=== PATIENT | male | born 1970 | race Hispanic/Latino ===

== ENCOUNTER 2017-12-05 16:06 | Emergency (ER) | payer OTHER ==
[~2017-12-05] VITALS: Ht 177.8 cm; Wt 100.0 kg
[~2017-12-05 16:06] MED LIST: ALBUTEROL SUL0.083 % IN; BACTRIM DS1 TAB PO; CEPHALEXIN500 MG PO; FLEXERIL PO; MEDDOSEPAK PO; MOTRIN800 MG/TAB PO; PROAIR HFA IN; ROBITUSSIN AC10 ML PO; TAM75CAP PO; TENIVAC1 ML IM; TOBRAMYCIN0.3 % OS
[2017-12-05 17:06] LABS: HEMATOCRIT 44.2 % (39.0-50.0); HEMOGLOBIN 14.7 g/dl (14.0-18.0); IMMATURE GRANULOCYTES 0.5 % (0.0-1.0); MEAN CELL VOLUME 87.7 fL CALC (80.0-100.0); MEAN CORPUSCULAR HGB 29.2 pG CALC (26.0-32.0); MEAN CORPUSCULAR HGB CONC 33.3 g/L CALC (32.0-36.0); NEUT# 10.96 thou/uL (1.82-7.42); RED BLOOD COUNT 5.04 mill/uL (4.70-6.10); RED CELL DISTRI WIDTH 13.7 % (11.5-15.5)
[2017-12-05 17:21] LABS: ALBUMIN 4.3 g/dL (3.2-5.0); ALKALINE PHOSPHATASE 61 u/l (38-126); AMYLASE < 30 u/l (30-110); ANION GAP 15 (6-22 (CALC)); BILIRUBIN, TOTAL 0.6 mg/dL (0.0-1.4); BUN 21 mg/dL (9-20); BUN/CREATININE RATIO 26 (12-20 (CALC)); CARBON DIOXIDE 28 mmol/l (22-30); CHLORIDE 101 mmol/l (95-108); CREATININE 0.8 mg/dL (0.7-1.3); GFR > 60 ML/MIN (>=60 (CALC)); GFR FOR AFR.AMER. > 60 ML/MIN (>=60 (CALC)); LIPASE 48 u/l (23-300); POTASSIUM 4.2 mmol/l (3.5-5.1); SGOT/AST 23 u/l (17-59); SGPT/ALT 53 u/l (21-72); SODIUM 139 mmol/l (137-146); TOTAL PROTEIN 7.2 g/dL (6.3-8.2)
[2017-12-05 18:15] LABS: URINE BILIRUBIN - DIPSTICK NEGATIVE (NEGATIVE); URINE BLOOD DIPSTICK TRACE-INTACT (NEGATIVE); URINE COLOR YELLOW; URINE GLUCOSE - DIPSTICK NEGATIVE (NEGATIVE); URINE KETONE NEGATIVE (NEGATIVE); URINE LEUK ESTERASE NEGATIVE (NEGATIVE); URINE NITRITE - DIPSTICK NEGATIVE (Negative); URINE PH 5.5 (4.5-8.0); URINE PROTEIN - DIPSTICK NEGATIVE (NEG-TRACE); URINE SPECIFIC GRAVITY >=1.030; URINE UROBILINOGEN - DIPSTICK 0.2 E.U./dL (0.2)
[2017-12-05 18:16] LABS: URINE CLARITY CLEAR
[2017-12-05] MEDS ORDERED: LOMOTIL2.5 MG PO (19:02)
[2017-12-05] MEDS ORDERED: BACTRIM DS1 TAB PO (19:02)
[2017-12-05] MEDS ORDERED: ZOFRAN ODT4 MG PO (19:02)
[2017-12-05 19:07] VITALS: BP 132/68
== END 2017-12-05 19:18 | disposition home or self-care (01) | DRG 392 ==
LOC: ED 16:06
PROVIDERS: Emergency Medicine
DX: K52.9 Noninfective gastroenteritis and colitis, unspecified (principal); R11.0 Nausea; R50.9 Fever, unspecified; R53.1 Weakness; R51 Headache
CPT/HCPCS: Q9967

== ENCOUNTER 2019-11-30 | Emergency (ER) | payer OTHER ==
[~2019-11-30] MED LIST changes: +LOMOTIL2.5 MG PO; +ZOFRAN ODT4 MG PO
[2019-11-30] MEDS ORDERED: BREO ELLIPTA1 INH IN (19:28)
== END 2019-11-30 20:40 | disposition home or self-care (01) | DRG 563 ==
DX: S93.402A Sprain of unspecified ligament of left ankle, initial encounter (principal); X50.0XXA Overexertion from strenuous movement or load, initial encounter; Y92.007 Garden or yard of unspecified non-institutional (private) residence as the place of occurrence of the external cause

== ENCOUNTER 2020-05-06 11:32 | Emergency (ER) | payer OTHER ==
[~2020-05-06] VITALS: Ht 177.8 cm; Wt 105.0 kg
[~2020-05-06 11:32] MED LIST changes: +BREO ELLIPTA1 INH IN
[2020-05-06] MEDS ORDERED: AMOXICILLIN500 MG PO (11:56)
[2020-05-06 12:00] VITALS: BP 150/79
== END 2020-05-06 12:00 | disposition home or self-care (01) | DRG 605 ==
LOC: ED 11:32
DX: S81.831A Puncture wound without foreign body, right lower leg, initial encounter (principal); L08.9 Local infection of the skin and subcutaneous tissue, unspecified; J45.909 Unspecified asthma, uncomplicated; W46.1XXA Contact with contaminated hypodermic needle, initial encounter; Y93.K9 Activity, other involving animal care; Y99.0 Civilian activity done for income or pay

== ENCOUNTER 2020-06-11 09:59 | Day surgery (SDC) | payer OTHER ==
[~2020-06-11] VITALS: Ht 177.8 cm; Wt 99.8 kg
[~2020-06-11 09:59] MED LIST changes: +AMOXICILLIN500 MG PO
[2020-06-11 13:53] VITALS: BP 139/81
--- NOTE | 2020-06-16 09:33 | NUR ---
PER PHYSICIAN, NOTIFIED PATIENT OF COLONOSCOPY RESULTS, REPEAT X 10 YEARS, OR SOONER IF NEEDED. FINDINGS INTERNAL HEMORRHOIDS, RECOMMENDATIONS OVER THE COUNTER SUPPOSITORIES AND HYDROCORTISON OINTMENT FOR SYMPTOMATIC RELIEF. PATIENT AGREED TO INFORMATION PROVIDED. NO CONCERNS VOICED. RESULTS FORWARDED TO PRIMARY CARE FOR CONTINUITY OF CARE.
== END 2020-06-11 14:07 | disposition home or self-care (01) | DRG 951 ==
LOC: ENDO 09:59
PROVIDERS: ATTEND Surgery
PROC: 0DJD8ZZ Inspection of Lower Intestinal Tract, Via Natural or Artificial Opening Endoscopic (ICD-10-PCS; principal; 2020-06-11)
DX: Z12.11 Encounter for screening for malignant neoplasm of colon (principal); K64.8 Other hemorrhoids; Z20.828 Contact with and (suspected) exposure to other viral communicable diseases

== ENCOUNTER 2021-02-05 10:42 | Inpatient (IN) | payer OTHER ==
[~2021-02-05] VITALS: Ht 177.8 cm; Wt 97.0 kg
--- NOTE | 2021-02-05 10:55 | NUR ---
PATIENT AMBULATED TO ROOM WITH STEADY GAIT AND PHYSICIAN NOTIFIED OF PATIENT STATUS
--- NOTE | 2021-02-05 11:29 | NUR ---
Rt BEDSIDE FOR ABG
[2021-02-05 12:58] LABS: IMMATURE GRANULOCYTES 0.4 % (0.0-5.0); MEAN CORPUSCULAR HGB 21.7 pG CALC (26.0-32.0); NEUT# 4.1 thou/uL (1.82-7.42); RED BLOOD COUNT 5.25 mill/uL (4.70-6.10); RED CELL DISTRI WIDTH 18.7 % (11.5-15.5)
[2021-02-05 13:04] LABS: HEMOGLOBIN 11.4 g/dl (14.0-18.0); MEAN CELL VOLUME 72.4 fL CALC (80.0-100.0)
[2021-02-05 13:10] LABS: ALBUMIN 3.8 g/dL (3.2-5.0); ALKALINE PHOSPHATASE 81 u/l (38-126); ANION GAP 13 (6-22 (CALC)); BUN 17 mg/dL (9-20); BUN/CREATININE RATIO 23 (12-20 (CALC)); CARBON DIOXIDE 29 mmol/l (22-30); CHLORIDE 98 mmol/l (95-108); CREATININE 0.7 mg/dL (0.7-1.3); GFR > 60 ML/MIN (>=60 (CALC)); GFR FOR AFR.AMER. > 60 ML/MIN (>=60 (CALC)); LIPASE 40 u/l (23-300); SODIUM 136 mmol/l (137-146); TOTAL PROTEIN 7.4 g/dL (6.3-8.2)
[2021-02-05 13:16] LABS: BILIRUBIN, TOTAL 0.3 mg/dL (0.0-1.4); SGOT/AST 48 u/l (17-59)
[2021-02-05 13:31] LABS: ACT PARTIAL THROMBO TIME 27.1 SECONDS (20.0-32.5); PROTHROMBIN TIME 10.4 SECONDS (9.0-12.5)
--- NOTE | 2021-02-05 13:48 | NUR ---
PATIENT TO RADIOLOGY
--- NOTE | 2021-02-05 16:44 | NUR ---
REPORT CALLED TO FLOOR
--- NOTE | 2021-02-05 16:46 | NUR ---
REPORT RECEIVED FROM ED.
--- NOTE | 2021-02-05 17:04 | NUR ---
PT ARRIVED VIA STRETCHER WITH O2 VIA NC @2L IN PLACE ACCOMPANIED BY ED RN. PT A&O X4. NO DISTRESS NOTED. PT DENIES SOB, BUT SLIGHT SOB NOTED ON EXERTION. O2 VIA NC @2L IN PLACE, PT DENIES ANY OXYGEN USE AT HOME. CLEAR/DIMINSHED BREATH SOUNDS UPON AUSCULATION. ACTIVE BOWEL SOUNDS X4 QUADRANTS. BM REPORTED YESTERDAY. PER PT HE TESTED POSITIVE LAST WEEK MONDAY, REPORTS ONLY NAUSEA AND WOODRUFF, DENIES ANY CURRENT NAUSEA OR WOODRUFF AT THIS TIME. HOME CARE AIDE IN PLACE. #20 LAC HEALTHY AND PATENT. ORIENTED PT TO ROOM. ASSESSMENT COMPLETED. DISCUSSED POC AND ISOLATION PRECAUTIONS. CALL LIGHT WITHIN REACH.
[2021-02-05 17:15] VITALS: BP 130/72
[2021-02-05 19:00] VITALS: BP 133/70
--- NOTE | 2021-02-05 21:13 | NUR ---
PT MEDICATED ORDERS PROVIDE. ASSISTED PT TO THE RESTROOM AND BACK TO THE BED. PT APPEARS STEADY UPON AMBULATING, BUT HAS OXYGEN TUBING EXTENDED AND IV PUMP/ASSISTANCE PROVIDE. OXYGEN IS ON 2LNC AT THIS TIME. OXYGEN SAT 93% ON 2L. POC DISCUSSED, PT REPORTS WANTING TO GO HOME TOMORROW. PT DEMONSTRATED IS USE AND WAS ABLE TO GET TO 1500 PRIOR TO MY LEAVING THE ROOM. I ENCOURAGED HIM TO CONTINUE ITS USE 1 BREATH PER 10 MINUTES WHILE AWAKE, VERBALIZED UNDERSTANDING. I ALSO EDUCATED HIM ON LAYING PRONE IF AND WHEN HE FEELS SOB, ACKNOWLEDGED UNDERSTANDING. CALL LIGHT W/IN REACH AND PT ENCOURAGED TO CALL NEEDS ARISE.
[2021-02-06] VITALS (7 sets, daily range): BP systolic 119–139; BP diastolic 57–82
--- NOTE | 2021-02-06 02:22 | NUR ---
PT CALLED TO REPORT IVPUMP SOUNDING, BATTERY WAS LOW AND IVF REPLENISHED AT THIS TIME. PT WAS SLEEPING AND PROMPTLY RETURNED TO SLEEP, DENIED ANY OTHER NEEDS. NO S/O DISTRESS.
[2021-02-06 05:37] LABS: HEMATOCRIT 36.1 % (39.0-50.0); HEMOGLOBIN 10.9 g/dl (14.0-18.0); IMMATURE GRANULOCYTES 0.7 % (0.0-5.0); MEAN CELL VOLUME 71.8 fL CALC (80.0-100.0); MEAN CORPUSCULAR HGB 21.7 pG CALC (26.0-32.0); MEAN CORPUSCULAR HGB CONC 30.2 g/dL CAL (32.0-36.0); NEUT# 1.75 thou/uL (1.82-7.42); RED BLOOD COUNT 5.03 mill/uL (4.70-6.10); RED CELL DISTRI WIDTH 18.3 % (11.5-15.5)
[2021-02-06 05:54] LABS: ALBUMIN 3.1 g/dL (3.2-5.0); ALKALINE PHOSPHATASE 71 u/l (38-126); ANION GAP 11 (6-22 (CALC)); BILIRUBIN, TOTAL 0.4 mg/dL (0.0-1.4); BUN 17 mg/dL (9-20); BUN/CREATININE RATIO 33 (12-20 (CALC)); C-REACTIVE PROTEIN 6.6 mg/dL (0-0.9); CARBON DIOXIDE 26 mmol/l (22-30); CHLORIDE 104 mmol/l (95-108); CREATININE 0.5 mg/dL (0.7-1.3); GFR > 60 ML/MIN (>=60 (CALC)); GFR FOR AFR.AMER. > 60 ML/MIN (>=60 (CALC)); POTASSIUM 4.4 mmol/l (3.5-5.1); SGOT/AST 37 u/l (17-59); SODIUM 137 mmol/l (137-146)
--- NOTE | 2021-02-06 06:11 | NUR ---
PT SLEEPING, AWOKE TO OUR ENTERING THE ROOM. IVPUMP CLEARED, PT DENIES ANY NEEDS. ENCOURAGED HIM TO QUIN IF NEEDS ARISE.
--- NOTE | 2021-02-06 09:00 | NUR ---
PT SEEN AWAKE, ALERT, ORIENTED X 3. LUNGS CLEAR BUT DIMINISHED, USES 3 LPM NC 96%. PT AMBULATORY IN ROOM, SEEN OOB IN CHAIR.
--- NOTE | 2021-02-06 14:41 | NUR ---
PT AT REST IN THE BED, NO ACUTE DISTRESS. PT AMBULATORY IN ROOM NEEDED. PT WANTED TO GO HOME, BUT DR OLVERA THOUGHT OTHERWISE.
--- NOTE | 2021-02-06 16:25 | NUR ---
PT UPDATED ON KNOWN RESULTS, CONTINUES TO REST IN THE ROOM IN NO DISTRESS.
--- NOTE | 2021-02-06 22:01 | NUR ---
PT ASSESSMENT COMPLETED AND PT MEDICATED AT THIS TIME. OXYGEN ASSESSED AT 99% ON 2LNC. OXYGEN REMOVED AND POC DISCUSSED, OXYGEN MONITORED AT THIS TIME TO BE 96-98% ON RA. PT AGREED HE WANTED TO TRY AND MAINTAIN WITHOUT THE OXYGEN. WILL REASSESS FOR OXYGEN SAT LEVELS BEING MAINTAINED. PT DENIES ANY OTHER NEEDS AT THIS TIME. HE DID MENTION GETTING COLD THE PREVIOUS NIGHT AND HAVING A COUGHING SPELL. PROVIDED MEDICATION FOR THE COUGH AND ADDITIONAL BEDDING FOR COMFORT. INSTRUCTED PT TO CALL NEEDS ARISE, VERBALIZED UNDERSTANDING, BUT REPORTS THAT HE FEELS OKAY AND THINKS HE CAN GO HOME TOMORROW. CALL LIGHT IN HAND.
--- NOTE | 2021-02-06 22:30 | NUR ---
OXYGEN SAT LEVEL MAINTAINED ON ROOM AIR TO BE 96% HOLDING. ADVISED PT TO REPLACE OXYGEN IF HE BECOMES SOB OR FEELS LIKE HE IS STRUGGLIN TO OBTAIN OXYGEN, VERBALIZED UNDERSTANDING.
[2021-02-07 01:00] VITALS: BP 142/77
--- NOTE | 2021-02-07 01:30 | NUR ---
IVF REPLENISHED AT THIS TIME. PT PROVIDED SNACK AND JUICE AT THIS TIME. OXYGEN SAT MAINTAINING ON ROOM AIR AT 96%.
[2021-02-07 04:00] VITALS: BP 133/65
--- NOTE | 2021-02-07 04:00 | NUR ---
PT AWAKE WITH TV ON AND LIGHTS LOW. OXYGEN STABLE @96% ON RA.
[2021-02-07 05:16] LABS: HEMATOCRIT 34.6 % (39.0-50.0); HEMOGLOBIN 10.4 g/dl (14.0-18.0); MEAN CELL VOLUME 72.5 fL CALC (80.0-100.0); MEAN CORPUSCULAR HGB 21.8 pG CALC (26.0-32.0); MEAN CORPUSCULAR HGB CONC 30.1 g/dL CAL (32.0-36.0); NEUT# 6.61 thou/uL (1.82-7.42); RED BLOOD COUNT 4.77 mill/uL (4.70-6.10); RED CELL DISTRI WIDTH 18.3 % (11.5-15.5)
[2021-02-07 05:36] LABS: ALBUMIN 2.8 g/dL (3.2-5.0); ALKALINE PHOSPHATASE 65 u/l (38-126); ANION GAP 10 (6-22 (CALC)); BUN 18 mg/dL (9-20); BUN/CREATININE RATIO 32 (12-20 (CALC)); CARBON DIOXIDE 25 mmol/l (22-30); CHLORIDE 105 mmol/l (95-108); CREATININE 0.5 mg/dL (0.7-1.3); GFR > 60 ML/MIN (>=60 (CALC)); GFR FOR AFR.AMER. > 60 ML/MIN (>=60 (CALC)); POTASSIUM 4.1 mmol/l (3.5-5.1); SGOT/AST 42 u/l (17-59); SODIUM 135 mmol/l (137-146); TOTAL PROTEIN 5.6 g/dL (6.3-8.2)
[2021-02-07 05:39] LABS: BILIRUBIN, TOTAL 0.1 mg/dL (0.0-1.4)
[2021-02-07 11:12] VITALS: BP 122/64
[2021-02-07 15:46] VITALS: BP 130/77
--- NOTE | 2021-02-07 19:05 | NUR ---
IVPUMP IS SOUNDING, I ENTERED THE ROOM TO RESET IV PUMP. PT VOICED FRUSTRATION STATING IT HAD BEEN SOUNDING FOR A "VERY LONG TIME AND DID IT OFF AND ON ALL DAY, EARLIER IT WENT FOR AN HOUR." I APOLOGIZED TO HIM AND ASSURED THAT I WOULD TRY TO GET TO HIM SOON POSSIBLE IF IT HAPPENED AGAIN THIS EVENING. PT DENIED ANY DISTRESSES OR NEEDS, DENIED COMFORT MEASURES OR SNACK/DRINKS AT THIS TIME. JUST VERBALIZED HE WAS "SO GLAD YOU ARE HERE NOW."
[2021-02-07 19:59] VITALS: BP 130/70
--- NOTE | 2021-02-07 23:59 | NUR ---
Pt awake sitting on the side of the bed. He denied any needs. I offered drink/crackers/provided as requested.
[2021-02-08 00:24] VITALS: BP 140/77
[2021-02-08 05:18] VITALS: BP 137/85
[2021-02-08 07:25] VITALS: BP 135/80
--- NOTE | 2021-02-08 07:25 | NUR ---
PATIENT LAYING IN BED AT THIS TIME. PATIENT DENIES ANY PAIN OR NEEDS CURRENTLY. LUNG RODRÍGUEZ ARE CLEAR/DIMINISHED AND PATIENT IS ON ROOM AIR AND SPO2 CURRENTLY IS 96%. FARM DEMONSTRATOR DONE SEE INTERVENTIONS. SIDERAILS ARE UP CALL LIGHT IS WITHIN REACH AT THIS TIME.
[2021-02-08 12:00] VITALS: BP 129/83
--- NOTE | 2021-02-08 12:20 | NUR ---
PATIENT SITTING UP IN CHAIR AT THIS TIME. EATING LUNCH DENEIS ANY PAIN CALL LIGHT WITHIN REACH. PATIENT DENEIS ANY SHORTNESS OF BREATH AND IS CURRENTLY ON ROOMAIR AND SPO2 IS 94%. CALL LIGHT WITHIN REACH.
--- NOTE | 2021-02-08 13:10 | NUR ---
SIX MINUTE WALK TEST PREFROMED. PATIENT HAS NOT HAD 02 ON ALL SHIFT AND SPO2 AT THIS TIME IS 96% AMD AFTER WALKING IN HALLWAY SPO2 REMAINS AT 95% RESULTS GIVEN TO DR. MULLINS AT THIS TIME.
[2021-02-08] MEDS ORDERED: DEXAMETHASON6 MG PO (13:39)
--- NOTE | 2021-02-08 14:05 | NUR ---
PATIENT D/C AT THIS TIME. ABE VERBALIZES D/C INSTRUCTIONS.
== END 2021-02-08 14:34 | disposition home or self-care (01) | DRG 177 ==
LOC: ED 10:42 → MS2 15:25
PROVIDERS: Physician Assistant; ADMIT Internal Medicine; ATTEND Internal Medicine
PROC: XW033E5 Introduction of Remdesivir Anti-infective into Peripheral Vein, Percutaneous Approach, New Technology Group 5 (ICD-10-PCS; principal; 2021-02-06)
DX: U07.1 COVID-19 (principal); J12.82 Pneumonia due to coronavirus disease 2019; J96.01 Acute respiratory failure with hypoxia; D64.9 Anemia, unspecified
CPT/HCPCS: J1650; Q9967

== ENCOUNTER 2021-12-27 10:16 | Observation (INO) | payer OTHER ==
[~2021-12-27] VITALS: Ht 177.8 cm; Wt 100.0 kg
[2021-12-27] VITALS (18 sets, daily range): BP systolic 83–171; BP diastolic 52–90
[~2021-12-27 10:16] MED LIST changes: +DEXAMETHASON6 MG PO
[2021-12-27 11:03] LABS: HEMATOCRIT 42.3 % (39.0-50.0); HEMOGLOBIN 12.8 g/dl (14.0-18.0); MEAN CORPUSCULAR HGB 24.8 pG CALC (26.0-32.0); MEAN CORPUSCULAR HGB CONC 30.3 g/dL CAL (32.0-36.0); NEUT# 15.71 thou/uL (1.82-7.42); RED BLOOD COUNT 5.16 mill/uL (4.70-6.10); RED CELL DISTRI WIDTH 17.1 % (11.5-15.5)
[2021-12-27 11:20] LABS: ALKALINE PHOSPHATASE 63 u/l (38-126); ANION GAP 15 (6-22 (CALC)); BUN 22 mg/dL (9-20); BUN/CREATININE RATIO 23 (12-20 (CALC)); CARBON DIOXIDE 22 mmol/l (22-30); CHLORIDE 106 mmol/l (95-108); GFR FOR AFR.AMER. > 60 ML/MIN (>=60 (CALC)); GFR OTHER RACES > 60 ML/MIN (>=60 (CALC)); LIPASE 92 u/l (23-300); POTASSIUM 4.2 mmol/l (3.5-5.1); SGOT/AST 47 u/l (17-59); SODIUM 139 mmol/l (137-146)
[2021-12-27 11:22] LABS: ALBUMIN 4.3 g/dL (3.2-5.0); BILIRUBIN, TOTAL 0.2 mg/dL (0.0-1.4); TOTAL PROTEIN 7.5 g/dL (6.3-8.2)
[2021-12-27] MEDS ORDERED: VOLTAREN1%GEL TOP (13:31)
[2021-12-27] MEDS ORDERED: HYDROCO/APAP1 TA9 PO (13:31)
[2021-12-27 14:46] LABS: URINE BILIRUBIN - DIPSTICK NEGATIVE (NEGATIVE); URINE BLOOD DIPSTICK TRACE-INTACT (NEGATIVE); URINE COLOR YELLOW; URINE GLUCOSE - DIPSTICK NEGATIVE (NEGATIVE); URINE KETONE NEGATIVE (NEGATIVE); URINE LEUK ESTERASE NEGATIVE (NEGATIVE); URINE NITRITE - DIPSTICK NEGATIVE (Negative); URINE PROTEIN - DIPSTICK NEGATIVE (NEG-TRACE); URINE SPECIFIC GRAVITY 1.015; URINE UROBILINOGEN - DIPSTICK 0.2 E.U./dL (0.2)
[2021-12-28] VITALS (7 sets, daily range): BP systolic 114–156; BP diastolic 69–86
[2021-12-28 05:29] LABS: MEAN CELL VOLUME 82.7 fL CALC (80.0-100.0); MEAN CORPUSCULAR HGB 25.2 pG CALC (26.0-32.0); MEAN CORPUSCULAR HGB CONC 30.5 g/dL CAL (32.0-36.0); RED BLOOD COUNT 4.21 mill/uL (4.70-6.10); RED CELL DISTRI WIDTH 17.3 % (11.5-15.5)
[2021-12-28 05:31] LABS: HEMATOCRIT 34.8 % (39.0-50.0); HEMOGLOBIN 10.6 g/dl (14.0-18.0)
[2021-12-28 05:54] LABS: ANION GAP 9 (6-22 (CALC)); BUN 26 mg/dL (9-20); BUN/CREATININE RATIO 33 (12-20 (CALC)); CARBON DIOXIDE 26 mmol/l (22-30); CHLORIDE 106 mmol/l (95-108); CREATININE 0.8 mg/dL (0.7-1.3); GFR FOR AFR.AMER. > 60 ML/MIN (>=60 (CALC)); GFR OTHER RACES > 60 ML/MIN (>=60 (CALC)); MAGNESIUM 1.9 mg/dL (1.6-2.3); POTASSIUM 4.2 mmol/l (3.5-5.1); SODIUM 137 mmol/l (137-146)
[2021-12-29 00:04] VITALS: BP 132/61
[2021-12-29 04:24] VITALS: BP 137/77
[2021-12-29 05:33] LABS: HEMATOCRIT 32.9 % (39.0-50.0); IMMATURE GRANULOCYTES 0.3 % (0.0-5.0); MEAN CORPUSCULAR HGB 24.9 pG CALC (26.0-32.0); MEAN CORPUSCULAR HGB CONC 30.4 g/dL CAL (32.0-36.0); NEUT# 4.15 thou/uL (1.82-7.42); RED BLOOD COUNT 4.01 mill/uL (4.70-6.10); RED CELL DISTRI WIDTH 16.8 % (11.5-15.5)
[2021-12-29 06:03] LABS: ALKALINE PHOSPHATASE 45 u/l (38-126); ANION GAP 11 (6-22 (CALC)); BUN 24 mg/dL (9-20); BUN/CREATININE RATIO 34 (12-20 (CALC)); CARBON DIOXIDE 26 mmol/l (22-30); CHLORIDE 107 mmol/l (95-108); CREATININE 0.7 mg/dL (0.7-1.3); GFR FOR AFR.AMER. > 60 ML/MIN (>=60 (CALC)); GFR OTHER RACES > 60 ML/MIN (>=60 (CALC)); MAGNESIUM 2.1 mg/dL (1.6-2.3); SGOT/AST 82 u/l (17-59); SODIUM 140 mmol/l (137-146)
[2021-12-29 06:04] LABS: ALBUMIN 3.1 g/dL (3.2-5.0); BILIRUBIN, TOTAL 0.4 mg/dL (0.0-1.4); TOTAL PROTEIN 5.6 g/dL (6.3-8.2)
[2021-12-29 07:16] VITALS: BP 177/99
[2021-12-29 08:38] VITALS: BP 135/69
[2021-12-29 10:10] VITALS: BP 136/85
[2021-12-29] MEDS ORDERED: FLEXERIL5 M1 PO (12:51)
== END 2021-12-29 13:15 | disposition home or self-care (01) | DRG 552 ==
LOC: ED 10:16 → ED-I 12:17 → ED 12:17 → ED-I 14:08 → ED 14:35 → MS2 14:35
PROVIDERS: Family Medicine; Nurse Practitioner; ADMIT Hospitalist; ATTEND Hospitalist
DX: M54.6 Pain in thoracic spine (principal); S27.322A Contusion of lung, bilateral, initial encounter; M25.511 Pain in right shoulder; V80.010A Animal-rider injured by fall from or being thrown from horse in noncollision accident, initial encounter; Y93.52 Activity, horseback riding; Y99.0 Civilian activity done for income or pay; Y92.79 Other farm location as the place of occurrence of the external cause; Z20.822 Contact with and (suspected) exposure to COVID-19; J45.909 Unspecified asthma, uncomplicated
CPT/HCPCS: G0378; J1650; Q9967